=== PATIENT | male | born 1975 | race Caucasian/White ===

== ENCOUNTER 2022-12-12 20:51 | Emergency (ER) | payer OTHER ==
[2022-12-12] MEDS ORDERED: Ketorolac Tromethamine 30 MG/ML VIAL ONE (23:33)
[2022-12-12] MEDS ORDERED: Boostrix 0.5 ML (Tdap) VIAL (>/=7 yrs of age) ONE (23:33)
== END 2022-12-13 00:20 | disposition home or self-care (01) ==
LOC: ERS 20:51
DX: S40.811A Abrasion of right upper arm, initial encounter (principal); S80.811A Abrasion, right lower leg, initial encounter; E11.40 Type 2 diabetes mellitus with diabetic neuropathy, unspecified; V49.10XA Passenger injured in collision with unspecified motor vehicles in nontraffic accident, initial encounter; Y92.410 Unspecified street and highway as the place of occurrence of the external cause
CPT/HCPCS: 70450; 72125; 90471; 90715; 96372; J1885